=== PATIENT | female | born 1965 | race Caucasian/White ===

== ENCOUNTER 2018-12-23 14:22 | Emergency (ER) | payer MEDICAID ==
[~2018-12-23] VITALS: Ht 170.2 cm; Wt 73.0 kg
[2018-12-23] MEDS ORDERED: KETOROLAC 60MG/2ML VIAL IM ONE (15:30)
[2018-12-23 16:43] VITALS: BP 114/67
== END 2018-12-23 16:45 | disposition home or self-care (01) ==
LOC: ER 14:22
DX: S70.01XA Contusion of right hip, initial encounter (principal); W01.0XXA Fall on same level from slipping, tripping and stumbling without subsequent striking against object, initial encounter; Y93.89 Activity, other specified; Y92.89 Other specified places as the place of occurrence of the external cause; Y99.0 Civilian activity done for income or pay; G40.909 Epilepsy, unspecified, not intractable, without status epilepticus; Z86.73 Personal history of transient ischemic attack (TIA), and cerebral infarction without residual deficits; E03.9 Hypothyroidism, unspecified; F17.210 Nicotine dependence, cigarettes, uncomplicated
CPT/HCPCS: 73502; 96372; 99283; J1885

== ENCOUNTER 2019-01-10 14:32 | Emergency (ER) | payer MEDICAID ==
[~2019-01-10] VITALS: Ht 170.2 cm; Wt 82.0 kg
[2019-01-10 17:02] VITALS: BP 110/62
== END 2019-01-10 23:55 | disposition left against medical advice (07) ==
LOC: ER 14:32
DX: R10.9 Unspecified abdominal pain (principal); Z53.21 Procedure and treatment not carried out due to patient leaving prior to being seen by health care provider